=== PATIENT | female | born 1995 | race Caucasian/White ===

== ENCOUNTER → 2018-06-20 19:12 | Observation (INO) ==
[2018-06-20 17:42] LABS: Bilirubin,Urine Negative (Negative); Blood,Urine Small (Negative); Clarity,Urine Cloudy (Clear); Color,Urine Yellow (Yellow); Glucose,Urine (UA) Normal (Normal); Ketones,Urine Negative (Negative); Leukocyte Esterase,Urine Negative (Negative); Nitrite,Urine Negative (Negative); Protein,Urine Negative (Neg-Trace); Specific Gravity,Urine 1.008 (1.010-1.025); Urobilinogen,Urine Normal (Normal)
[2018-06-20 17:46] LABS: Amphetamine Screen,Urine Negative ng/mL (Cutoff=1000); Barbiturate Screen,Urine Negative ng/mL (Cutoff=200); Benzodiazepines Screen,Urine Negative ng/mL (Cutoff=200); Cannabinoid Screen,Urine Negative ng/mL (Cutoff = 50); Cocaine Screen,Urine Negative ng/mL (Cutoff= 300); Opiate Screen,Urine Negative ng/mL (Cutoff=300); Phencyclidine Screen,Urine Negative ng/mL (Cutoff=25)
[2018-06-20 17:48] LABS: Bacteria,Urine Few per hpf (None-Few); Hyaline Casts,Urine None Seen per lpf (None-Few); RBC,Urine 0-3 per hpf (0-3); Squamous Epithelial Cell,Urine Many per lpf (None-Few); WBC,Urine 0-3 per hpf (0-3)
[2018-06-20 18:50] LABS: Candida DNA Not Detected (Not Detect); Gardnerella DNA Not Detected (Not Detect); Trichomonas DNA Not Detected (Not Detect)
--- NOTE | 2018-06-20 19:05 | Discharge Summary ---
Date of Encounter: 06/20/18 Time of Encounter: 19:05 - Discharge Diagnosis (1) 20 weeks gestation of Priority: Primary Status: Acute Comments: Admitted to observation for complaint of vaginal discharge (2) Vaginal discharge during in second trimester Priority: Secondary Status: Acute Comments: Sterile speculum exam completed with moderate amount of white vaginal discharge noted. Vaginosis panel sample collected and returned negative. To follow up with Dr. Bello as scheduled for routine visit. - Discharge Medications Home Medications: Pnv95/Ferrous Fumarate/FA [ Vitamin Tablet] 1 tab PO DAILY 06/20/18 [History] Allergies/Adverse Reactions: Allergy/AdvReac Type Severity Reaction Status Date / Time acetaminophen [From Percocet] AdvReac Nausea Verified 06/20/18 16:40 oxycodone [From Percocet] AdvReac Nausea Verified 06/20/18 16:40 Data Procedures and tests throughout hospitalization: Laboratory Tests 06/20/18 06/20/18 06/20/18 16:51 16:51 17:34 Urine Color Yellow Urine Clarity Cloudy A Urine pH 7.0 Ur Specific [place] 1.008 L Urine Protein Negative Urine Glucose (UA) Normal Urine Ketones Negative Urine Blood Small H Urine Nitrite Negative Urine Bilirubin Negative Urine Urobilinogen Normal Ur Leukocyte Esterase Negative Urine Microscopic RBC 0-3 Urine Microscopic WBC 0-3 Ur Squamous Epith Cells Many H Urine Bacteria Few Hyaline Casts None Seen Ur Culture Indicated? NO Urine Opiates Screen Negative Ur Barbiturates Screen Negative Ur Phencyclidine Scrn Negative Ur Amphetamines Screen Negative U Benzodiazepines Scrn Negative Urine Cocaine Screen Negative U Marijuana (THC) Screen Negative Ur Drug Screen Interp See Below Garima species DNA Not Detected Gardnerella DNA Probe Not Detected Trichomonas DNA Probe Not Detected Labs on day of discharge: Labs from last 24 hours 06/20/18 06/20/18 06/20/18 17:34 16:51 16:51 Urine Color Yellow Urine Clarity Cloudy A Urine pH 7.0 Ur Specific [place] 1.008 L Urine Protein Negative Urine Glucose (UA) Normal Urine Ketones Negative Urine Blood Small H Urine Nitrite Negative Urine Bilirubin Negative Urine Urobilinogen Normal Ur Leukocyte Esterase Negative Urine Microscopic RBC 0-3 Urine Microscopic WBC 0-3 Ur Squamous Epith Cells Many H Urine Bacteria Few Hyaline Casts None Seen Ur Culture Indicated? NO Urine Opiates Screen Negative Ur Barbiturates Screen Negative Ur Phencyclidine Scrn Negative Ur Amphetamines Screen Negative U Benzodiazepines Scrn Negative Urine Cocaine Screen Negative U Marijuana (THC) Screen Negative Ur Drug Screen Interp See Below Garima species DNA Not Detected Gardnerella DNA Probe Not Detected Trichomonas DNA Probe Not Detected Date of admission: 06/20/18 16:20 Discharging clinician: Mary Schmitt Anticipated date of discharge: 06/20/18 - Patient Status Disposition: Home, Self-Care Condition: Good Functional capacity at discharge: independent ambulation Overall status at discharge: patient is progressing back to baseline - Discharge Instructions - Diet and Activity Activity: resume usual activities as tolerated Diet: regular diet 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 States she had a large amount of thick green/yellow discharge once and other than that it has been a white creamy discharge. Reports intercourse approximately 2 days ago. Sterile speculum exam reveals moderate amount of white vaginal discharge. Cervix visualized and appears closed. Vaginosis panel sample collected and returned negative. Patient is to follow up as scheduled with Dr. Bello for routine visit. Time Attestation: Total time spent providing and/or coordinating discharge services: Time Spent: Less than 30 minutes Exam - Constitutional General appearance IM: A&O X 3, pleasant, no acute distress, answers questions appropriately - Respiratory Respiratory exam: Present: CTAB - Cardiovascular Cardiovascular exam IM: Present: RRR, +S1, +S2 - GI/Abdominal GI/Abdominal exam IM: normal bowel sounds, soft - Rectal Rectal exam: deferred - External exam: normal external exam - Extremities Exam Extremities exam IM: Present: full ROM, normal capillary refill, normal inspection - Neurological Exam Neurological exam: alert, normal gait, oriented X3 - VTE Reasons for not Prescribing Prophylaxis: Treatment not Indicated - Low risk for VTE
== END | disposition home or self-care (01) ==
LOC: 1NENULAB
PROVIDERS: ADMIT Student in an Organized Health Care Education/Training Program; ATTEND Student in an Organized Health Care Education/Training Program

== ENCOUNTER 2018-10-13 12:07 | Inpatient (IN) ==
[2018-10-13 13:30] LABS: Protein/Creatinine Ratio,Urine 1.24 mg/mg (0.00-0.20)
[2018-10-13 13:32] LABS: Basophils # 0.1 K/mcL (0.0-0.2); Basophils % 0.4 %; Eosinophils # 0.1 K/mcL (0.0-0.6); Eosinophils % 1.1 %; Hematocrit 36.4 % (35.3-44.9); Hemoglobin 11.8 g/dL (11.5-15.4); Immature Granulocytes % 1.1 % (0-4); Lymphocytes # 1.9 K/mcL (0.6-4.6); Lymphocytes % 15.5 %; Mean Corpuscular HGB Conc 32.4 g/dL (31.6-35.5); Mean Corpuscular Hemoglobin 28.9 pg (28.0-33.3); Mean Corpuscular Volume 89.2 fL (83.0-100.0); Mean Platelet Volume 10.1 fL (9.4-12.4); Monocytes % 8.1 %; Neutrophils # 9.2 K/mcL (1.6-8.9); Platelet Count 323 K/mcL (140-400); Red Blood Count 4.08 M/mcL (3.82-4.97); Red Cell Distribution Width 13.6 % (11.5-14.5); Segmented Neutrophils % 73.8 %
[2018-10-13] MEDS ORDERED: Acetaminophen 325 MG TABLET PO ONE (13:39)
[2018-10-13 13:41] LABS: Alanine Aminotransferase 12 Units/L (7-52); Aspartate Amino Transferase 16 Units/L (13-39); BUN/Creatinine Ratio 22 (6-26); Blood Urea Nitrogen 10 mg/dL (6-20); Lactate Dehydrogenase 164 Units/L (140-271); Uric Acid 6.9 mg/dL (2.3-7.6); eGFR For Non-African Americans > 60 (> 60)
[2018-10-13 13:58] LABS: Bilirubin,Urine Negative (Negative); Blood,Urine Negative (Negative); Clarity,Urine Clear (Clear); Color,Urine Yellow (Yellow); Glucose,Urine (UA) Normal (Normal); Ketones,Urine Negative (Negative); Leukocyte Esterase,Urine Negative (Negative); Nitrite,Urine Negative (Negative); Protein,Urine 30 mg/dL (Neg-Trace); Specific Gravity,Urine 1.005 (1.010-1.025); Urobilinogen,Urine Normal (Normal)
[2018-10-13 14:00] LABS: Bacteria,Urine Few per hpf (None-Few); Hyaline Casts,Urine None Seen per lpf (None-Few); RBC,Urine 0-3 per hpf (0-3); Squamous Epithelial Cell,Urine Many per lpf (None-Few); WBC,Urine 0-3 per hpf (0-3)
--- NOTE | 2018-10-13 20:09 | OB/GYN History & Physical ---
Date of Encounter: 10/13/18 Time of Encounter: 20:07 Assessment and Plan (1) 36 weeks gestation of Current visit: Yes Status: Acute (2) Pre-eclampsia, mild, third trimester Current visit: Yes Status: Acute Left-sided symptoms resolved after assessment of patient, normotensive, elevated protein and creatinine ratio, PIH serologies negative Patient assessed by Dr. Gresham and plan a care discussed with Dr. Gresham Admit to labor and delivery with diagnosis of mild preeclampsia without severe features Induction of labor at midnight on 37 weeks Nubain and epidural as desired May have 1 meal Continuous monitoring P LOC placed Anticipate History of Present Illness HPI: Ms. Flowers is a 22 year old female 36+6 weeks gestation presented to triage with complaints of overall not feeling well, patient reports headache, dizziness, blurred vision, numbness and left arm numbness on modified of face and left leg occasional contractions, or lower extremity swelling, reports good movement, denies vaginal bleeding or leaking of fluid. care with Dr. James course complicated with short cervix and labor with observation at [facility] discharged home to regular care , betamethasone course initiated and complete. 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), t&a - Social History Smoking Status: Never smoker Smokeless Tobacco Status: No Alcohol use: none Drug use: none - Family History Mother Adopted: No Family Member Ethnicity: Non- Living Status: Still Living Hx Family Cardiac Disorders: No Hx Family Respiratory Disorders: No Hx Family Cancer: No Hx Family GI Disorders: No Hx Family Endocrine Disorder: Yes (thyroid) Hx Family Neuromuscular Disorders: No Hx Family Neurologic Disorders: No Hx Family HEENT Disorders: No Hx Family Autoimmune Disorders: No Obstetrical History - Pregnancies : 1 Para: 0 Term: 0 : 0 Ab's: 0 Livin Medications and Allergies Pnv95/Ferrous Fumarate/FA [ Vitamin Tablet] 1 tab PO DAILY 06/20/18 [History] Docusate [Colace] 100 mg PO DAILY 09/17/18 [History] Ferrous Sulfate [Iron] 325 mg PO DAILY 09/17/18 [History] Amoxicillin 10/13/18 [History] Allergy/AdvReac Type Severity Reaction Status Date / Time acetaminophen [From Percocet] AdvReac Rash Verified 10/13/18 12:56 oxycodone [From Percocet] AdvReac Rash Verified 10/13/18 12:56 Exam - Constitutional Constitutional: well developed, well nourished, no acute distress - HEENT HEENT: Mucus Membranes Moist - Neck Neck exam: full ROM - Lungs Respiratory exam: CTAB - Cardiovascular Cardiovascular exam: RRR - Abdomen Abdomen: Present: gravid, non tender - Extremities Extremities exam: normal capillary refill, pedal edema Deep Tendon Reflex Grade: 2+ Normal - Comments Comments: On initial assessment PERRLA, no facial deficits noted, tongue midline, left hand grasp very slightly weaker, no difference and extended arm strength to pressure, pedal pull and pushes equal Results Result Diagrams: 10/13/18 12:50 10/13/18 12:50 Abnormal lab results WBC 12.5 K/mcL (4.3-11.1) H 10/13/18 12:50 9.2 K/mcL (1.6-8.9) H 10/13/18 12:50 0.45 mg/dL (0.60-1.20) L 10/13/18 12:50 Ur Specific [place] 1.005 (1.010-1.025) L 10/13/18 13:42 30 mg/dL (Neg-Trace) H 10/13/18 13:42 Ur Squamous Epith Cells Many per lpf (None-Few) H 10/13/18 13:42 Ur Culture Indicated? YES (NO) A 10/13/18 13:42 Protein/Creatinin Ratio 1.24 mg/mg (0.00-0.20) H 10/13/18 12:50 42 mg/dL (1-14) H 10/13/18 12:50 All other labs normal. - VTE Reasons for not Prescribing Prophylaxis: Treatment not Indicated - Low risk for VTE
--- NOTE | 2018-10-13 20:46 | Anesthesia Evaluation PreOp ---
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 HX Anesthesia History: No Prior Anesthetic Complications, Past Anesthesia (Breast B X x2, Tonsil) : Yes Test: Positive Alcohol Use: none Drug use: none Medications and Allergies Pnv95/Ferrous Fumarate/FA [ Vitamin Tablet] 1 tab PO DAILY 06/20/18 [History] Docusate [Colace] 100 mg PO DAILY 09/17/18 [History] Ferrous Sulfate [Iron] 325 mg PO DAILY 09/17/18 [History] Amoxicillin 10/13/18 [History] Allergy/AdvReac Type Severity Reaction Status Date / Time acetaminophen [From Percocet] AdvReac Rash Verified 10/13/18 12:56 oxycodone [From Percocet] AdvReac Rash Verified 10/13/18 12:56 - Meds/Allergy Pre-op Review Medications Reviewed: Yes Allergies Reviewed: Yes Beta Blockers on Current Med List: No Anesthesia Results - Labs 10/13/18 12:50 10/13/18 12:50 Anesthesia Exam 128/88 78 16 fht 133 Height: 5'2" Weight: 76 k NPO (# of Hours): 3 Pain Scale: 1 Pain Scale Used: Numeric (1 - 10) - HEENT Pupil (Motor): Pupils equal Mallampati: II Teeth: Normal Oral Opening: Greater than 3 - GAS METER MECHANIC GAS METER MECHANIC Motor: Normal RUE, Normal LUE, Normal RLE, Normal LLE, Normal Face GAS METER MECHANIC Sensory: Normal: RUE, LUE, RLE, LLE, Face - Cardiac Rhythm: Regular Murmur: None - Pulmonary Breath Sounds: bilateral Clear Respiratory Effort: Symmetrical Anesthesia Assess/Plan ASA Score: 2 Level of consciousness: Cooperative Anesthetic Plan: Epidural (risks discussed, questions answered, consented) Monitoring Plan: Standard Monitors Recovery Plan: Other
[2018-10-13] MEDS ORDERED: Ringers Solution, Lactated 1,000 ML ONE (20:48)
[2018-10-13] MEDS ORDERED: Ondansetron 4 MG/2 ML VIAL IVP PRN (20:53)
[2018-10-13] MEDS ORDERED: Naloxone 0.4 MG/ML INJ IVP PRN (20:53)
[2018-10-13] MEDS ORDERED: *HR* Nalbuphine 10 MG/ML AMPUL IVP PRN (20:53)
[2018-10-13] MEDS ORDERED: Metoclopramide 10 MG/2 ML VIAL IVP PRN (20:53)
[2018-10-13] MEDS ORDERED: Famotidine 20 MG/2 ML VIAL IVP PRN (20:53)
[2018-10-13 21:27] LABS: Amphetamine Screen,Urine Negative ng/mL (Cutoff=1000); Barbiturate Screen,Urine Negative ng/mL (Cutoff=200); Benzodiazepines Screen,Urine Negative ng/mL (Cutoff=200); Cannabinoid Screen,Urine Negative ng/mL (Cutoff = 50); Cocaine Screen,Urine Negative ng/mL (Cutoff= 300); Opiate Screen,Urine Negative ng/mL (Cutoff=300); Phencyclidine Screen,Urine Negative ng/mL (Cutoff=25)
[2018-10-13 21:37] LABS: Basophils # 0.1 K/mcL (0.0-0.2); Basophils % 0.4 %; Eosinophils # 0.1 K/mcL (0.0-0.6); Eosinophils % 0.8 %; Hemoglobin 10.9 g/dL (11.5-15.4); Immature Granulocytes % 0.9 % (0-4); Lymphocytes # 2.3 K/mcL (0.6-4.6); Mean Corpuscular HGB Conc 32.1 g/dL (31.6-35.5); Mean Corpuscular Hemoglobin 28.8 pg (28.0-33.3); Mean Corpuscular Volume 89.9 fL (83.0-100.0); Mean Platelet Volume 10.2 fL (9.4-12.4); Monocytes % 8.1 %; Platelet Count 312 K/mcL (140-400); Red Blood Count 3.78 M/mcL (3.82-4.97); Red Cell Distribution Width 13.8 % (11.5-14.5); Segmented Neutrophils % 71.8 %
[2018-10-13] MEDS ORDERED: miSOPROStol 25 MCG TABLET PO PRN (21:42)
[2018-10-14] MEDS: Ringers Solution, Lactated 1,000 ML IVC SCH ×2 (00:07→08:27)
[2018-10-14] MEDS ORDERED: Oxytocin 20 units/ LR 1000 mL 20 UNIT/1,000 ML BAG IVC ONE (05:02)
--- NOTE | 2018-10-14 05:14 | OB Labor Progress Note ---
Date of Encounter: 10/14/18 Time of Encounter: 05:11 Labor Progress Note - Subjective Subjective: Pt feeling contractions does not want medication at this time. - Vital Signs Vital Signs: 138/78 133/80 127/79 - Cervix Cervix: 3/80/-2 - Heart Tones Heart Tones: 135/moderate/+accels/-decels - Caro Caro: 2-4 - Interventions Interventions: cervical song placed - Plan Physician notified: No Plan: Start Pitocin per policy Frequent repositioning Anticipate
[2018-10-14] MEDS ORDERED: Oxytocin 20 units/ LR 1000 mL 20 UNIT/1,000 ML BAG IVC SCH ×2 (05:15→15:38)
--- NOTE | 2018-10-14 10:08 | OB Labor Progress Note ---
Date of Encounter: 10/14/18 Time of Encounter: 10:06 Labor Progress Note - Subjective Subjective: Patient coping well with contractions. She has been ambulating in room and utilizing the birthing ball for pain control. At this time she is requesting an epidural for pain control. - Vital Signs Vital Signs: WNL, BP 125/68 - Cervix Cervix: 6/80/-1 - Heart Tones Heart Tones: FHR 130 bpm, moderate variability, +15x15 accels, no decels. - [place]: q2min - Interventions Interventions: SVE Offered AROM at this time but patient prefers to wait until she has an epidural in place. - Plan Plan: HOSPITAL ORDERLY to place epidural AROM when patient is comfortable Anticipate
[2018-10-14] MEDS ORDERED: Epidural Premix (fent/bupiv) 110 ML EP SCH (10:15)
[2018-10-14] MEDS ORDERED: Epidural Premix (fent/bupiv) 110 ML EP ONE (10:18)
--- NOTE | 2018-10-14 10:48 | Anesthesia Procedures ---
Date of Encounter: 10/14/18 Time of Encounter: 10:46 Procedures: Anesthesia - Epidural/Spinal Patient ID/Chart reviewed: Yes Patient examined: Yes OB Eval: Gestational age: 37.1 OB Eval: : 1 OB Eval: Hx Para: 0 OB Eval: Dilated at (cm): 6 OB Eval: Contractions: Non-stressed pattern Consent Obtained: Yes Supplemental Oxygen: None/Room Air Site Prep: Aseptic Technique, Sterile prep and drape, Povidone-Iodine 1% Patient position: upright Local Anesthetic: Lidocaine 1% Amount of Local Anesthetic used: 3 Touhy Needle Gauge: 18 Touhy Needle Depth (cm): 8 Catheter Depth at Skin (cm): 19 Test Dose (1.5% Lido + Epi): Volume given (mls): 5 Test Dose Result: Negative Loading Dose: Other: 10mls of epidural pharm bag Loading Dose Administered: Thru Catheter Infusion Med: 0.125% Bupivacaine w/ 2 mcg/ml Fentanyl Infusion Rate (mls/hr): 14 ([id number] pcea) Catheter Secured in Place: Tegaderm, Tape Interspace Used: L3-L4 Loss of Resistance (BEN): Yes Blood: No CSF: No Paresthesia: No Procedure: pt tolerated procedure well. no complications. vss. fhr stable.
--- NOTE | 2018-10-14 11:19 | OB Labor Progress Note ---
Date of Encounter: 10/14/18 Time of Encounter: 11:17 Labor Progress Note - Subjective Subjective: Patient now comfortable with epidural in place. - Vital Signs Vital Signs: WNL - Cervix Cervix: 6/100/-1 - Heart Tones Heart Tones: FHR 145 bpm, moderate variability, no accels, variable decels. - [place]: Q2 min - Interventions Interventions: SVE AROM for moderate amount of bloody fluid. Fluid became clear as more continued to leak. - Plan Plan: Frequent position change with peanut ball Anticipate
--- NOTE | 2018-10-14 14:49 | OB/GYN Procedure Note ---
Delivery - Delivery Date: 10/14/18 Provider: Mary Schmitt (Phyllis Masters DO, PGY1) Intrapartum events: none Delivery induction: song, misoprostol Delivery augmentation: rupture of membranes, pitocin Delivery monitor: external FHT, external uterine Anesthesia: epidural Quantitated Blood Loss: 150 - (s) Infant A Delivery Date: 10/14/18 Delivery Time: 14:17 Presentation: vertex Position: MELVIN Route of delivery: Gender: Male Viability: Viable Pounds: 6 Ounces: 12 Weight Gram: 3065 kg at 1 minute: 8 at 5 mins: 9 Shoulder Dystocia: not encountered Specimens collected: cord blood Placenta: spontaneous Cord: nuchal cord, 3 umbilical vessels, nuchal reduced - Repair Episiotomy: none Laceration Description: Periurethral, Superficial - Complications Delivery complications: none Delivery comments: Called to room for delivery. Under maternal effort, spontaneous delivery of viable male over intact perineum. Infant placed on maternal abdomen for drying and stimulation. Cord clamped and cut after pulsation ceased. Spontaneous delivery of intact placenta, EBL 150 mL's. Nuchal cord x 1 noted after delivery of head and easily reduced. No shoulder dystocia or meconium encountered. Upon inspection of vagina a superficial laceration was noted, was hemostatic therefore not repaired. Bilateral periurethral lacerations were noted. Left side was repaired with one stitch due to bleeding and was hemostatic after. Mother and in kangaroo care for 2 hour recovery. - Disposition Mom disposition: stable in LDR disposition: stable in LDR
[2018-10-14] MEDS ORDERED: Rho Immune Globulin 1,500 UNIT SYRINGE IM PRN (15:38)
[2018-10-14] MEDS ORDERED: Famotidine 20 MG/2 ML VIAL IVP PRN (15:38)
[2018-10-14] MEDS ORDERED: Benzocaine/Menthol 56 GM AEROSOL SPRAY TP PRN (15:38)
[2018-10-14] MEDS ORDERED: Naloxone 0.4 MG/ML INJ IVP PRN (15:38)
[2018-10-14] MEDS ORDERED: Measles/Mumps/Rubella Vacc 0.5 ML VIAL SQ PRN (15:38)
[2018-10-14] MEDS ORDERED: Lanolin 28 GM TUBE TP PRN (15:38)
[2018-10-14] MEDS ORDERED: Ondansetron 4 MG/2 ML VIAL IVP PRN (15:38)
[2018-10-14] MEDS ORDERED: Ringers Solution, Lactated 1,000 ML IVC SCH (15:38)
[2018-10-14] MEDS ORDERED: Acetaminophen 325 MG TABLET PO PRN (15:38)
[2018-10-15] MEDS: Ibuprofen 600 MG TABLET PO PRN ×2 (01:08→08:00)
[2018-10-15] MEDS ORDERED: Ondansetron ODT 4 MG TAB.RAPDIS SL ONE (06:59)
[2018-10-15 08:25] VITALS: BP 120/76
[2018-10-15] MEDS ORDERED: Prenatal Vit/FA 1 EACH TABLET PO SCH (09:00)
--- NOTE | 2018-10-15 10:15 | Discharge Summary ---
Date of Encounter: 10/15/18 Time of Encounter: 10:12 - Discharge Diagnosis (1) Vaginal delivery Priority: Primary Status: Acute Comments: Feeling well Tolerating regular diet Pain well-controlled with by mouth pain meds Ambulating independently Voiding independently Lochia light Passing flatus, no BM yet Vital signs stable Discharge home today (2) Breast feeding status of mother Priority: Secondary Status: Acute Comments: Community resources provided - Discharge Medications Prescriptions: New Acetaminophen [Tylenol] 650 mg PO Q6HR PRN tablet PRN Reason: Mild Pain Ibuprofen [Motrin] 600 mg PO Q6HR PRN #30 tablet PRN Reason: Cramping Benzocaine/Menthol [place] [Dermoplast [place]] 1 appl TP QID PRN aerosol PRN Reason: See Comments Docusate [Colace] 100 mg PO BID #30 capsule Lanolin 1 appl TP QID PRN tube PRN Reason: Sore Nipples Continued Pnv95/Ferrous Fumarate/FA [ Vitamin Tablet] 1 tab PO DAILY Docusate [Colace] 100 mg PO DAILY Amoxicillin Discontinued Ferrous Sulfate [Iron] 325 mg PO DAILY Home Medications: Pnv95/Ferrous Fumarate/FA [ Vitamin Tablet] 1 tab PO DAILY 06/20/18 [History] Docusate [Colace] 100 mg PO DAILY 09/17/18 [History] Amoxicillin 10/13/18 [History] Acetaminophen [Tylenol] 650 mg PO Q6HR PRN tablet 10/15/18 [Rx] Benzocaine/Menthol [place] [Dermoplast [place]] 1 appl TP QID PRN aerosol 10/15/18 [Rx] Docusate [Colace] 100 mg PO BID #30 capsule 10/15/18 [Rx] Ibuprofen [Motrin] 600 mg PO Q6HR PRN #30 tablet 10/15/18 [Rx] Lanolin 1 appl TP QID PRN tube 10/15/18 [Rx] Allergies/Adverse Reactions: Allergy/AdvReac Type Severity Reaction Status Date / Time acetaminophen [From Percocet] AdvReac Rash Verified 10/13/18 12:56 oxycodone [From Percocet] AdvReac Rash Verified 10/13/18 12:56 Data Procedures and tests throughout hospitalization: Laboratory Tests 10/13/18 10/13/18 10/13/18 12:50 12:50 12:50 WBC 12.5 H RBC 4.08 Hgb 11.8 Hct 36.4 MCV 89.2 MCH 28.9 MCHC 32.4 RDW 13.6 Plt Count 323 MPV 10.1 Immature Gran % 1.1 Seg Neutrophils % 73.8 Lymphocytes % 15.5 Monocytes % 8.1 Eosinophils % 1.1 Basophils % 0.4 Neutrophils # 9.2 H Lymphocytes # 1.9 Monocytes # 1.0 Eosinophils # 0.1 Basophils # 0.1 BUN 10 Creatinine 0.45 L Est GFR ( Amer) > 60 Est GFR (Non-Af Amer) > 60 BUN/Creatinine Ratio 22 Uric Acid 6.9 AST 16 ALT 12 Lactate Dehydrogenase 164 Urine Color Urine Clarity Urine pH Ur Specific [place] Urine Protein Urine Glucose (UA) Urine Ketones Urine Blood Urine Nitrite Urine Bilirubin Urine Urobilinogen Ur Leukocyte Esterase Urine Microscopic RBC Urine Microscopic WBC Ur Squamous Epith Cells Urine Bacteria Hyaline Casts Ur Culture Indicated? Urine Creatinine 34 Protein/Creatinin Ratio 1.24 H Urine Total Protein 42 H Urine Opiates Screen Ur Barbiturates Screen Ur Phencyclidine Scrn Ur Amphetamines Screen U Benzodiazepines Scrn Urine Cocaine Screen U Marijuana (THC) Screen Ur Drug Screen Interp 10/13/18 10/13/18 10/13/18 13:15 13:42 21:23 WBC 12.6 H RBC 3.78 L Hgb 10.9 L Hct 34.0 L MCV 89.9 MCH 28.8 MCHC 32.1 RDW 13.8 Plt Count 312 MPV 10.2 Immature Gran % 0.9 Seg Neutrophils % 71.8 Lymphocytes % 18.0 Monocytes % 8.1 Eosinophils % 0.8 Basophils % 0.4 Neutrophils # 9.0 H Lymphocytes # 2.3 Monocytes # 1.0 Eosinophils # 0.1 Basophils # 0.1 BUN Creatinine Est GFR ( Amer) Est GFR (Non-Af Amer) BUN/Creatinine Ratio Uric Acid AST ALT Lactate Dehydrogenase Urine Color Yellow Urine Clarity Clear Urine pH 7.0 Ur Specific [place] 1.005 L Urine Protein 30 H Urine Glucose (UA) Normal Urine Ketones Negative Urine Blood Negative Urine Nitrite Negative Urine Bilirubin Negative Urine Urobilinogen Normal Ur Leukocyte Esterase Negative Urine Microscopic RBC 0-3 Urine Microscopic WBC 0-3 Ur Squamous Epith Cells Many H Urine Bacteria Few Hyaline Casts None Seen Ur Culture Indicated? YES A Urine Creatinine Protein/Creatinin Ratio Urine Total Protein Urine Opiates Screen Negative Ur Barbiturates Screen Negative Ur Phencyclidine Scrn Negative Ur Amphetamines Screen Negative U Benzodiazepines Scrn Negative Urine Cocaine Screen Negative U Marijuana (THC) Screen Negative Ur Drug Screen Interp See Below Date of admission: 10/13/18 12:07 Primary care physician: Rachna Fleming CNP Consults: 10/14/18 15:38 Consult to Food Service Ambassador [CONS] Routine Comment: Vaginal delivery, consult needed Discharging clinician: Priti Teixeira Anticipated date of discharge: 10/15/18 - Patient Status Disposition: Home, Self-Care Condition: Good Functional capacity at discharge: independent ambulation Overall status at discharge: patient is progressing back to baseline - Discharge Instructions Follow Up With: Rachna Fleming CNP [Primary Care Provider] - Lan Bello MD [Partnered Physician] - - Diet and Activity Activity: increase activity as tolerated Diet: regular diet Hospital Course Reason for admission: induction of labor, IUP at term, pre-eclampsia Delivery: Episiotomy: none Laceration: none Other procedures: none complications: none Discharge diagnosis: IUP at term delivered [place] baby: male Time Attestation: Total time spent providing and/or coordinating discharge services: Time Spent: Less than 30 minutes Exam - Constitutional Vitals: Temp Pulse Resp BP Pulse Ox 97.6 F 76 16 120/76 97 10/15/18 07:30 10/15/18 07:30 10/15/18 07:30 10/15/18 07:30 10/15/18 00:56 General appearance IM: A&O X 3 - Respiratory Respiratory exam: Present: CTAB - Cardiovascular Cardiovascular exam IM: Present: RRR, +S1, +S2 - GI/Abdominal GI/Abdominal exam IM: normal bowel sounds, no peritoneal signs Incision: normal - Rectal Rectal exam: deferred - Uterine Tone: Firm Uterus Position: At Umbilicus, Midline - Extremities Exam Extremities exam IM: Present: full ROM, normal capillary refill, normal inspection, radial pulses palpable and symmetrical - Neurological Exam Neurological exam: alert, CN II-XII intact, normal gait, oriented X3, reflexes normal, no focal deficits, strengths equal and symetr throughout - Psychiatric Additional comments: Patient denies history of anxiety and depression. Signs and symptoms of depression discussed with patient and partner and both verbalized understanding of when to seek help. - Skin Additional comments: Breasts: Soft, nontender; nipples intact without erythema
== END 2018-10-15 14:17 | disposition home or self-care (01) | DRG 805 ==
LOC: 1NENULAB → OBSVTOIN 12:07 → 1NENUOBS 10-14 16:59
PROVIDERS: ADMIT Advanced Practice Midwife; ATTEND Advanced Practice Midwife